=== PATIENT | female | born 1960 | race Caucasian/White ===

== ENCOUNTER 2023-11-24 07:15 | Day surgery (SDC) | payer MEDICARE, OTHER ==
[2023-11-24] MEDS: Lactated Ringers 1,000 ML IV SCH (07:31)
[2023-11-24] MEDS ORDERED: fentaNYL 50 MCG/ML SDV ONE ×2 (08:01)
[2023-11-24] MEDS ORDERED: Ketamine 200 MG/20 ML MDV ONE (08:01)
[2023-11-24] MEDS ORDERED: Propofol 200 MG/20 ML SDV ONE ×2 (08:01)
[2023-11-24] MEDS ORDERED: Midazolam 1 MG/ML 2 ML SDV ONE (08:01)
== END 2023-11-24 09:29 | disposition home or self-care (01) ==
LOC: CC.SDS 07:15
PROVIDERS: ATTEND Family Medicine
DX: Z12.11 Encounter for screening for malignant neoplasm of colon (principal); D12.3 Benign neoplasm of transverse colon; D12.8 Benign neoplasm of rectum; K57.30 Diverticulosis of large intestine without perforation or abscess without bleeding; R19.5 Other fecal abnormalities; E66.9 Obesity, unspecified; I10 Essential (primary) hypertension; M54.50 Low back pain, unspecified; Z68.36 Body mass index [BMI] 36.0-36.9, adult; Z79.899 Other long term (current) drug therapy
CPT/HCPCS: 00811; 88305; J2250; J2704; J3010; J3490; J7120